=== PATIENT | female | born 1990 | race Caucasian/White ===

== ENCOUNTER 2016-05-22 17:20 | Emergency (ER) | payer BC ==
[~2016-05-22] VITALS: Ht 185.4 cm; Wt 81.6 kg
[2016-05-22] MEDS ORDERED: Acetaminophen 500mg (ES) tab PO ONE (18:00)
[2016-05-22 18:05] VITALS: BP 139/94
[2016-05-22 19:40] VITALS: BP 142/95
[2016-05-22 20:15] VITALS: BP 142/95
[2016-05-22] MEDS ORDERED: IBUPROFEN600 MG ORAL (20:30)
--- NOTE | 2016-05-23 09:14 | Diagnostic Imaging Report ---
Indication: Head trauma. Syncope Technique: Contiguous 5 mm thick transaxial imaging of the head obtained in a Siem[employer] Sensation [address] scanner. Soft tissue and bone windows generated. Total Dose length Product (DLP): [address] Dose Index Volume (CTDIvol): 70.38 mGy Comparison: none Findings: The size and configuration of the cortical sulci, basal cisterns, and ventricles are within normal limits for age. There is no mass effect, midline shift, or edema identified. There is no evidence of acute hemorrhage or abnormal intra-axial or extra-axial fluid collections. There is soft tissue swelling over the left aspect of the head within the scalp. No fracture seen. Impression: No mass effect, edema or acute bleed. Left scalp contusion The CT scanner at [facility] is accredited by the [employer] and the scans are performed using protocols designed to limit radiation exposure to as low as reasonably achievable to attain images of sufficient resolution adequate for diagnostic evaluation.
--- NOTE | 2016-05-23 10:07 | Diagnostic Imaging Report ---
Indication: Pain Findings: 3 views of the right elbow were obtained. No acute fractures, malalignment, erosions or periostitis are identified. Bone mineralization is within normal limits. Soft tissues are unremarkable. Impression: Negative examination of the elbow.
--- NOTE | 2016-05-23 10:07 | Diagnostic Imaging Report ---
Indication: Back pain Comparison: None Findings: 3 views of the lumbar spine were obtained. No acute fracture or malalignment is identified. Vertebral body heights and disk spaces are well maintained. Posterior elements are unremarkable. Impression: No acute findings.
--- NOTE | 2016-05-23 14:13 | Emergency Room Report ---
History of Present Illness General Chief Complaint: Multiple Trauma/Fall Source: Patient Present Illness HPI 25-year-old female presents to ED complaining of headache, elbow pain and back pain status post tripping fall. Patient states today she was walking down the steps when she slipped and fell backwards hitting her head and hitting her back and right elbow. Denies LOC at the time. Patient went downstairs and states she passed out once downstairs waking up on the laundry room floor. Patient notes headache, right elbow pain and back pain. Throbbing. 9/10. Nonradiating. No other aggravating relieving factors. Denies photophobia, blurry vision, nausea or vomiting. Denies neck pain. Denies any other associated symptoms Allergies: Coded Allergies: No Known Allergies (Unverified , 05/22/16) Patient History Past Medical History: none Past Surgical History: none Pertinent Family History: none Social History: Denies: alcohol use, drug use, smoking Last Menstrual Period: 05/04/16 Now: No Immunizations: UTD Reviewed Nursing Documentation: PMH: Agreed, PSxH: Agreed Nursing Documentation-PMH Past Medical History: No Stated History Review of Systems All Other Systems: negative except mentioned in HPI Physical Exam Vital Signs Date Time Temp Pulse Resp B/P Pulse Ox O2 Delivery O2 Flow Rate FiO2 05/22/16 17:27 97.7 87 16 144/97 100 Room Air Sp02 EP Interpretation: reviewed, normal General Appearance: no apparent distress, alert, GCS 15, non-toxic Head: normocephalic, atraumatic Eyes: bilateral eye PERRL, bilateral eye normal inspection ENT: hearing grossly normal, normal pharynx, no angioedema, normal voice Neck: full range of motion, supple/symm/no masses Respiratory: chest non-tender, lungs clear, normal breath sounds, speaking full sentences Cardiovascular #1: regular rate, rhythm, no edema Cardiovascular #2: 2+ carotid (R), 2+ carotid (L), 2+ radial (R), 2+ radial (L) , 2+ dorsalis pedis (R), 2+ dorsalis pedis (L) Gastrointestinal: normal bowel sounds, non tender, soft, non-distended, no guarding, no rebound Rectal: deferred Genitourinary: normal inspection, no CVA tenderness, vertebral tenderness Musculoskeletal: gait/station normal, normal range of motion, non-tender, tender - R elbow Neurologic: alert, oriented x3, responsive, motor strength/tone normal, sensory intact, speech normal Psychiatric: judgement/insight normal, memory normal, mood/affect normal, no suicidal/homicidal ideation Reflexes: 3+ bicep (R), 3+ bicep (L), 3+ tricep (R), 3+ tricep (L), 3+ knee (R) , 3+ knee (L) Skin: normal color, no rash, warm/dry, well hydrated Lymphatic: no adenopathy Medical Decision Making Diagnostic Impression: Primary Impression: Elbow contusion Qualified Codes: S50.01XA - Contusion of right elbow, initial encounter Additional Impressions: Multiple injuries due to trauma Head contusion Qualified Codes: S00.03XA - Contusion of scalp, initial encounter ER Course Hospital Course 25-year-old F presents to ED complaining of right elbow and back pain. Head pain status post trip and fall. Positive LOC Differential diagnoses include: Fracture, dislocation, sprain, contusion Clinical course Patient placed on stretcher. After initial history and physical, I ordered pain medications and Xrays of R elbow, L. spine, CT head Xrays prelim read shows no acute fracture/dislocation. CT head unremarkable. Reassurance given Diagnosis - elbow contusion, mutlple injuries due to trauma, head contusion Stable and discharged to home with prescription for Motrin. apply ice, keep elevated. weight bear as tolerated. Followup with PMD. Return to ED if symptoms recur or worsen Labs Test 05/22/16 18:00 Urine HCG, Qualitative Negative Other X-Ray Diagnostic Results Other X-Ray Diagnostic Results : X-Ray Ordered: right elbow, L-spine EP Interpretation: Yes Findings: no fractures, no dislocation, no soft tissue swelling Number of Views: 3 Other Impression Right elbow-No fracture, no dislocation, no soft tissue swelling L-spine-No fracture, no dislocation, no soft tissue swelling CT/MRI/US Diagnostic Results CT/MRI/US Diagnostic Results : Imaging Test Ordered: CT head Impression scalp contusion, no intracranial injury Last Vital Signs Date Time Temp Pulse Resp B/P Pulse Ox O2 Delivery O2 Flow Rate FiO2 05/22/16 20:15 97.9 64 16 142/95 100 Room Air Status: improved Disposition: HOME, SELF-CARE Condition: Stable Scripts Ibuprofen* (MOTRIN*) 600 Mg Tablet 600 MG ORAL Q8H Y for For Pain, #30 TAB 0 Refills Prov: ROSALIND PERDUE M.D. 05/22/16 Departure Forms: Return to Work Return to Work Date: May 24, 2016 Work Restrictions: No Heavy Lifting Patient Instructions: Head Injury, Adult, [id number] ROSALIND PERDUE M.D. May 23, 2016 14:13
== END 2016-05-22 20:36 | disposition home or self-care (01) ==
LOC: EMR 19:33
DX: S50.01XA Contusion of right elbow, initial encounter (principal); S00.03XA Contusion of scalp, initial encounter; W01.0XXA Fall on same level from slipping, tripping and stumbling without subsequent striking against object, initial encounter; Y92.9 Unspecified place or not applicable; M54.9 Dorsalgia, unspecified
CPT/HCPCS: 70450; 72020; 81025; 99284